=== PATIENT | male | born 1945 | race African-American/Black ===

== ENCOUNTER 2017-02-09 07:58 | Emergency (ER) | payer MEDICARE, OTHER ==
[~2017-02-09] VITALS: Ht 182.9 cm; Wt 100.0 kg
[~2017-02-09 07:58] MED LIST: ALBU18HF2 IH; BACL-141 PO; HYDR-519 PO; NIFE-1 PO; PROAIR; TAMS-11 PO; TRAM50TA3 PO
[2017-02-09] MEDS ORDERED: ONDANSETRON HCL 4MG/2ML VIAL IV STA (08:37)
[2017-02-09] MEDS ORDERED: MORPHINE SULFATE 4 MG/ML CPJ (NOT FOR IM USE) IV STA (08:37)
[2017-02-09] MEDS ORDERED: SODIUM CHLORIDE 0.9% 1,000 ML IV ONE (08:37)
[2017-02-09 09:12] LABS: BASOPHILS % 0.4 % (0.0-2.0); DIFFERENTIAL COMMENT 0; EOSINOPHILS % 0.9 % (0.0-5.0); HEMATOCRIT. 36.3 % (42.0-52.0); HEMOGLOBIN. 12.1 g/dL (14.0-18.0); LYMPHOCYTES % 9.7 % (20.0-50.0); MEAN CORPUSCULAR HEMOGLOBIN 33.8 pg (28.0-32.0); MEAN CORPUSCULAR HGB CONC 33.4 g/dL (31.0-37.0); MEAN CORPUSCULAR VOLUME 101.2 fL (80.0-94.0); MEAN PLATELET VOLUME 9.1 fl (7.4-10.4); MONOCYTES % 8.6 % (2.0-8.0); NEUTROPHILS % 80.4 % (40.0-76.0); PLATELET 134 x1000/uL (130-400); RED BLOOD CELL COUNT 3.58 mill/uL (4.7-6.1); RED CELL DISTRIBUTION WIDTH 14.2 % (11.6-14.6); WHITE BLOOD COUNT 10.3 x1000/uL (4.5-11.0)
[2017-02-09 09:17] LABS: CHLORIDE 106 mEq/L (98-107); INDEX HEMOLYSI 1 (1-3); INDEX ICTERIC 1 (1-4); INDEX LIPEMIC 1 (1-3)
[2017-02-09 09:20] LABS: PROTHROMBIN TIME 10.7 sec
[2017-02-09 09:22] LABS: GLUCOSE URINE NEGATIVE (NEGATIVE); KETONES URINE TRACE (NEGATIVE); LEUKOCYTE ESTERASE URINE 3+ (NEGATIVE); NITRITE URINE POSITIVE (NEGATIVE); OCCULT BLOOD URINE 3+ (NEGATIVE); PROTEIN URINE 3+ (NEGATIVE); SPECIFIC GRAVITY URINE 1.022 (1.005-1.030); UROBILINOGEN URINE 0.2 E.U./dL (0.2-1.0)
[2017-02-09 09:23] LABS: CLARITY URINE TURBID (CLEAR); COLOR URINE AMBER (YELLOW)
[2017-02-09 09:26] LABS: RBC URINE 50-100 /hpf (0-2); WBC URINE TNTC /hpf (0-2)
[2017-02-09 09:26] LABS: ALANINE AMINOTRANSFERASE 30 IU/L (13-61); ALBUMIN 3.5 g/dL (3.4-5.0); ANION GAP 14; CALCIUM 8.5 mg/dL (8.5-10.1); CARBON DIOXIDE 27 mEq/L (21-32); LIPASE 130 IU/L (73-393); UREA NITROGEN BLOOD 21 mg/dL (7-21); eGFR > 60 mL/min (>60)
[2017-02-09 09:27] LABS: BACTERIA URINE 4+; SQUAMOUS EPITHELIAL CELL URINE FEW /lpf (RARE/1+)
[2017-02-09] MEDS ORDERED: MORPHINE SULFATE 4 MG/ML CPJ (NOT FOR IM USE) IV ONE (10:00)
[2017-02-09] MEDS ORDERED: PHENAZOPYRIDINE HCL 200MG TABLET PO ONE (10:15)
[2017-02-09 12:45] VITALS: BP 146/60
[2017-02-09] MEDS ORDERED: SODIUM CHLORIDE 0.9% 10ML VIAL ONE (13:06)
[2017-02-09] MEDS ORDERED: IOHEXOL-300 100 ML BOTTLE ONE (13:06)
== END 2017-02-09 13:39 | disposition home or self-care (01) ==
LOC: ER 08:06
DX: N39.0 Urinary tract infection, site not specified (principal); N40.0 Benign prostatic hyperplasia without lower urinary tract symptoms; I10 Essential (primary) hypertension; D64.9 Anemia, unspecified; F17.200 Nicotine dependence, unspecified, uncomplicated; Z86.718 Personal history of other venous thrombosis and embolism; Z85.46 Personal history of malignant neoplasm of prostate
CPT/HCPCS: 36415; 51702; 74177; 80053; 81001; 83690; 85025; 85610; 87077; 87086; 87186; 96361; 96374; 96375; 99285; A4216; J2270; J2405; J7030; Q9967

== ENCOUNTER 2017-02-21 08:47 | Emergency (ER) | payer MEDICARE, OTHER ==
[~2017-02-21] VITALS: Ht 177.8 cm; Wt 91.0 kg
[2017-02-21] MEDS ORDERED: MORPHINE SULFATE 4 MG/ML CPJ (NOT FOR IM USE) IV STA (09:06)
[2017-02-21] MEDS ORDERED: SODIUM CHLORIDE 0.9% 1,000 ML IV ONE (09:06)
[2017-02-21] MEDS ORDERED: ONDANSETRON HCL 4MG/2ML VIAL IV STA (09:06)
[2017-02-21 09:53] LABS: BASOPHILS % 0.6 % (0.0-2.0); DIFFERENTIAL COMMENT 0; EOSINOPHILS % 0.5 % (0.0-5.0); HEMATOCRIT. 36.8 % (42.0-52.0); HEMOGLOBIN. 12.3 g/dL (14.0-18.0); MEAN CORPUSCULAR HEMOGLOBIN 33.6 pg (28.0-32.0); MEAN CORPUSCULAR HGB CONC 33.4 g/dL (31.0-37.0); MEAN CORPUSCULAR VOLUME 100.6 fL (80.0-94.0); MEAN PLATELET VOLUME 8.2 fl (7.4-10.4); MONOCYTES % 6.5 % (2.0-8.0); NEUTROPHILS % 79.4 % (40.0-76.0); PLATELET 233 x1000/uL (130-400); RED BLOOD CELL COUNT 3.66 mill/uL (4.7-6.1); RED CELL DISTRIBUTION WIDTH 14.6 % (11.6-14.6)
[2017-02-21 09:55] LABS: CHLORIDE 105 mEq/L (98-107); INDEX HEMOLYSI 1 (1-3); INDEX ICTERIC 1 (1-4); INDEX LIPEMIC 1 (1-3)
[2017-02-21 09:58] LABS: INR 1.1; PROTHROMBIN TIME 11.5 sec
[2017-02-21 10:04] LABS: ALANINE AMINOTRANSFERASE 24 IU/L (13-61); ALBUMIN 3.7 g/dL (3.4-5.0); ANION GAP 10; CALCIUM 9.1 mg/dL (8.5-10.1); CARBON DIOXIDE 28 mEq/L (21-32); LIPASE 145 IU/L (73-393); UREA NITROGEN BLOOD 19 mg/dL (7-21); eGFR > 60 mL/min (>60)
[2017-02-21 10:44] LABS: CLARITY URINE CLEAR (CLEAR); COLOR URINE YELLOW (YELLOW); GLUCOSE URINE NEGATIVE (NEGATIVE); KETONES URINE NEGATIVE (NEGATIVE); LEUKOCYTE ESTERASE URINE 2+ (NEGATIVE); NITRITE URINE NEGATIVE (NEGATIVE); OCCULT BLOOD URINE 2+ (NEGATIVE); PROTEIN URINE NEGATIVE (NEGATIVE); SPECIFIC GRAVITY URINE 1.011 (1.005-1.030); UROBILINOGEN URINE 0.2 E.U./dL (0.2-1.0)
[2017-02-21 11:29] LABS: MUCUS URINE TRACE /lpf (NONE/TRACE)
[2017-02-21 11:30] LABS: SQUAMOUS EPITHELIAL CELL URINE RARE /lpf (RARE/1+)
[2017-02-21 11:31] LABS: BACTERIA URINE 4+
[2017-02-21 11:33] LABS: WBC URINE 25-50 /hpf (0-2)
[2017-02-21] MEDS ORDERED: CEPHALEXIN 500MG CAPSULE PO NR (12:10)
[2017-02-21 12:18] VITALS: BP 148/79
== END 2017-02-21 12:58 | disposition home or self-care (01) ==
LOC: ER 09:02
DX: R33.9 Retention of urine, unspecified (principal); I10 Essential (primary) hypertension; F14.10 Cocaine abuse, uncomplicated; Z85.46 Personal history of malignant neoplasm of prostate; Z86.718 Personal history of other venous thrombosis and embolism
CPT/HCPCS: 36415; 51702; 74177; 80053; 81001; 83690; 85025; 85610; 96361; 96374; 96375; 99285; J2270; J2405; J7030; A4315

== ENCOUNTER 2017-06-04 05:36 | Emergency (ER) | payer MEDICARE, OTHER ==
[~2017-06-04] VITALS: Ht 185.4 cm; Wt 100.0 kg
[2017-06-04 05:56] VITALS: BP 121/69
[2017-06-04 07:31] LABS: CLARITY URINE TURBID (CLEAR); COLOR URINE ORANGE (YELLOW); GLUCOSE URINE NEGATIVE (NEGATIVE); KETONES URINE NEGATIVE (NEGATIVE); LEUKOCYTE ESTERASE URINE 3+ (NEGATIVE); NITRITE URINE POSITIVE (NEGATIVE); OCCULT BLOOD URINE 3+ (NEGATIVE); PROTEIN URINE 1+ (NEGATIVE); SPECIFIC GRAVITY URINE 1.008 (1.005-1.030); UROBILINOGEN URINE 0.2 E.U./dL (0.2-1.0)
[2017-06-04 07:35] LABS: INR 1.1; PARTIAL THROMBOPLASTIN TIME 30.7 sec (23.4-31.0); PROTHROMBIN TIME 11.1 sec (9.4-11.6)
[2017-06-04 07:39] LABS: BASOPHILS % 0.6 % (0.0-2.0); EOSINOPHILS % 2.9 % (0.0-5.0); HEMATOCRIT. 31.4 % (42.0-52.0); HEMOGLOBIN. 10.2 g/dL (14.0-18.0); MEAN CORPUSCULAR HEMOGLOBIN 30.4 pg (28.0-32.0); MEAN CORPUSCULAR VOLUME 93.4 fL (80.0-94.0); MEAN PLATELET VOLUME 8.8 fl (7.4-10.4); MONOCYTES % 10.9 % (2.0-8.0); NEUTROPHILS % 54.6 % (40.0-76.0); PLATELET 135 x1000/uL (130-400); RED BLOOD CELL COUNT 3.36 mill/uL (4.7-6.1); RED CELL DISTRIBUTION WIDTH 18.6 % (11.6-14.6)
[2017-06-04 07:41] LABS: CARBON DIOXIDE 28 mEq/L (21-32); CHLORIDE 105 mEq/L (98-107)
== END 2017-06-04 09:01 | disposition home or self-care (01) ==
LOC: ER 05:36
DX: N30.80 Other cystitis without hematuria (principal); I10 Essential (primary) hypertension
CPT/HCPCS: 36415; 80053; 81001; 85025; 85610; 85730; 99284

== ENCOUNTER 2021-09-16 23:05 | Emergency (ER) | payer MEDICARE, MEDICAID ==
[~2021-09-16] VITALS: Ht 177.8 cm; Wt 90.0 kg
[~2021-09-16 23:05] MED LIST changes: -NIFE-1 PO; +NIFE-53 PO
[2021-09-17 02:35] LABS: BASOPHILS % 0.6 % (0.0-2.0); EOSINOPHILS % 0.2 % (0.0-5.0); HEMATOCRIT. 37.3 % (42.0-52.0); HEMOGLOBIN. 12.5 g/dL (14.0-18.0); LYMPHOCYTES % 7.3 % (20.0-50.0); MEAN CORPUSCULAR HEMOGLOBIN 34.6 pg (28.0-32.0); MEAN CORPUSCULAR VOLUME 103.5 fL (80.0-94.0); MEAN PLATELET VOLUME 10.4 fl (7.4-10.4); MONOCYTES % 9.5 % (2.0-8.0); NEUTROPHILS % 82.4 % (40.0-76.0); PLATELET 187 x1000/uL (130-400); RED CELL DISTRIBUTION WIDTH 13.2 % (11.6-14.6)
[2021-09-17 02:44] LABS: CHLORIDE 102 mEq/L (98-107)
[2021-09-17 07:16] LABS: CLARITY URINE CLEAR (CLEAR); COLOR URINE YELLOW (YELLOW); KETONES URINE 3+ (NEGATIVE); LEUKOCYTE ESTERASE URINE NEGATIVE (NEGATIVE); NITRITE URINE NEGATIVE (NEGATIVE); OCCULT BLOOD URINE NEGATIVE (NEGATIVE); PH URINE 5.5 (4.5-8.0); PROTEIN URINE TRACE (NEGATIVE); SPECIFIC GRAVITY URINE 1.053 (1.005-1.030)
[2021-09-17] MEDS ORDERED: IOHEXOL-300 100 ML BOTTLE ONE (07:47)
[2021-09-17 10:00] VITALS: BP 119/47
== END 2021-09-17 10:08 | disposition home or self-care (01) ==
LOC: ER 23:05
DX: R10.33 Periumbilical pain (principal); R53.83 Other fatigue; R50.9 Fever, unspecified; I10 Essential (primary) hypertension; Z79.899 Other long term (current) drug therapy
CPT/HCPCS: 36415; 71045; 74177; 80053; 81003; 83605; 83690; 83880; 84145; 84484; 85025; 87040; 87086; 93005; 99285; Q9967